=== PATIENT | female | born 1990 | race Caucasian/White ===

== ENCOUNTER 2018-10-03 13:44 | Emergency (ER) | payer OTHER ==
[2018-10-03] MEDS: ALBUTEROL 0.083% (NEB) 2.5 MG/3 ML AMP HHN (16:24)
== END 2018-10-03 16:55 | disposition home or self-care (01) ==
LOC: FTE 13:44
DX: R05 Cough (principal)
CPT/HCPCS: 94664; 99283-25